=== PATIENT | female | born 1975 | race American Indian/Alaskan Native ===

== ENCOUNTER 2017-11-09 15:55 | Emergency (ER) | payer MEDICAID ==
[~2017-11-09] VITALS: Ht 5367.7 cm; Wt 86.4 kg
[~2017-11-09 15:55] MED LIST: CHOL2000 PO; ESCI20TA PO; FERR325T28 PO; HYDR-569 PO; LORA1TAB PO; ONDA4TAB12 PO; ONDA4TAB59 PO; ONDA8TAB9 PO; PANT40TA4 PO
[2017-11-09 16:07] VITALS: BP 116/99
[2017-11-09] MEDS ORDERED: HYDROmorphone 1 mg/ml syringe IM ONE (16:15)
[2017-11-09] MEDS ORDERED: ondansetron 4mg rapidly disintigrating tab PO ONE (16:15)
[2017-11-09] MEDS ORDERED: morphine 2 MG/ML inj. syringe IM ONE (16:35)
[2017-11-09] MEDS ORDERED: diphenhydrAMINE 50 mg/ml inj IM ONE (16:35)
[2017-11-09] MEDS ORDERED: HYDROcodone/acetaminophen 10/325mg tab PO ONE ×2 (17:15→17:35)
[2017-11-09] MEDS ORDERED: morphine 2 MG/ML inj. syringe IV ONE (17:20)
[2017-11-09] MEDS ORDERED: morphine 8mg/ml inj. syringe IV ONE (17:20)
[2017-11-09] MEDS ORDERED: HYDR-3965 PO (18:06)
== END 2017-11-09 18:33 | disposition home or self-care (01) ==
LOC: ER 15:55
DX: S46.919A Strain of unspecified muscle, fascia and tendon at shoulder and upper arm level, unspecified arm, initial encounter (principal); S93.402A Sprain of unspecified ligament of left ankle, initial encounter; S29.9XXA Unspecified injury of thorax, initial encounter; F43.20 Adjustment disorder, unspecified; M23.92 Unspecified internal derangement of left knee; Z90.49 Acquired absence of other specified parts of digestive tract; Z98.890 Other specified postprocedural states; Z91.040 Latex allergy status; Z79.899 Other long term (current) drug therapy; W01.0XXA Fall on same level from slipping, tripping and stumbling without subsequent striking against object, initial encounter; Y93.89 Activity, other specified; Y92.89 Other specified places as the place of occurrence of the external cause; Y99.8 Other external cause status
CPT/HCPCS: 71046; 73030; 73564; 73610; 73630; 96372; 96374; 99284; J1200; J2270

== ENCOUNTER 2018-05-12 14:52 | Emergency (ER) | payer MEDICAID ==
[~2018-05-12] VITALS: Ht 157.5 cm; Wt 85.5 kg
[2018-05-12] MEDS ORDERED: ondansetron/PF 4mg/2ml inj IV ONE (15:45)
[2018-05-12] MEDS ORDERED: normal saline 1000ML IV soln IVB ONE (15:45)
[2018-05-12] MEDS ORDERED: HYDROmorphone 1 mg/ml syringe IV ONE (15:45)
[2018-05-12 15:51] LABS: BASOPHILS # (AUTO) 0.1 X10'3 (0-0.2); BASOPHILS % (AUTO) 1.5 % (0-1); EOSINOPHILS # (AUTO) 0.1 X10'3 (0-0.9); EOSINOPHILS % (AUTO) 1.2 % (0-6); HEMATOCRIT 39.1 % (35.0-45.0); HEMOGLOBIN 13.3 g/dl (12.0-16.0); LYMPHOCYTES # (AUTO) 2.7 X10'3 (1.1-4.8); LYMPHOCYTES % (AUTO) 28.6 % (21-51); MEAN CORPUSCULAR HEMOGLOBIN 30.4 PG (27.0-31.0); MEAN CORPUSCULAR HGB CONC 33.8 % (33.0-36.5); MEAN CORPUSCULAR VOLUME 89.8 FL (78-98); MEAN PLATELET VOLUME 9.1 FL (7.4-10.4); MONOCYTES # (AUTO) 0.6 X10'3 (0-0.9); MONOCYTES % (AUTO) 6.4 % (2-12); NEUTROPHILS # (AUTO) 6.1 X10'3 (1.8-7.7); NEUTROPHILS % (AUTO) 62.3 % (42-75); PLATELET COUNT 271 X10'3 (140-440); RED BLOOD COUNT 4.36 X10'6 (4.20-5.60); RED CELL DISTRIBUTION WIDTH 14.1 % (11.5-14.5); WHITE BLOOD COUNT 9.6 X10'3 (4.5-11.0)
[2018-05-12 16:14] LABS: ALANINE AMINOTRANSFERASE 25 U/L (12-78); ALBUMIN 3.7 G/DL (3.4-5.0); ALKALINE PHOSPHATASE 63 IU/L (46-116); ANION GAP 11 (8-16); ASPARTATE AMINO TRANSFERASE 14 U/L (10-37); BILIRUBIN,TOTAL 0.3 MG/DL (0.1-1.0); BLOOD UREA NITROGEN 7 MG/DL (7-18); BUN/CREATININE RATIO 7.9 (6.6-38.0); CALCIUM 8.9 MG/DL (8.5-10.1); CHLORIDE 100 MMOL/L (99-107); CREATININE 0.89 MG/DL (0.40-0.90); GLUCOSE 88 MG/DL (70-104); LIPASE 92 U/L (73-393); POTASSIUM 3.5 MMOL/L (3.5-5.1); SODIUM 134 MMOL/L (135-145); TOTAL CARBON DIOXIDE 22.6 MMOL/L (24-32); TOTAL PROTEIN 7.5 G/DL (6.4-8.2); eGFR 70 ML/MIN
[2018-05-12 16:15] LABS: COLOR,URINE YELLOW (Yellow); GLUCOSE, URINE NEGATIVE (Neg); KETONES,URINE NEGATIVE (Neg); LEUKOCYTE ESTERASE ,URINE NEGATIVE (Neg); NITRITES, URINE NEGATIVE (Neg); OCCULT BLOOD,URINE TRACE-INTACT (Neg); PH,URINE 6.5 (4.8-8.0); PROTEIN,URINE NEGATIVE (Neg); UROBILINOGEN,URINE 0.2 E.U/dL (0.2-1.0)
[2018-05-12 16:18] LABS: CLARITY,URINE Slightly Cloudy (Clear); UA COLLECTION TYPE CLN CATCH MIDSTREAM
[2018-05-12 16:23] LABS: BACTERIA,URINE NONE SEEN /HPF (Neg); RBC,URINE 0-2 /HPF (0-2); SQUAMOUS EPITHELIAL CELL,UR FEW /LPF (FEW); WBC,URINE 0-4 /HPF (0-4)
[2018-05-12] MEDS ORDERED: IBUP-1984 PO (19:07)
[2018-05-12 19:14] VITALS: BP 111/54
== END 2018-05-12 19:18 | disposition home or self-care (01) ==
LOC: ER 14:52
DX: R10.33 Periumbilical pain (principal); M54.9 Dorsalgia, unspecified; M25.512 Pain in left shoulder; Z90.49 Acquired absence of other specified parts of digestive tract; Z98.890 Other specified postprocedural states; Z91.040 Latex allergy status; Z79.899 Other long term (current) drug therapy
CPT/HCPCS: 36415; 71045; 74176; 80053; 81001; 83690; 84484; 85025; 93005; 96374; 96375; 99285; J1170; J2405; J7030

== ENCOUNTER 2019-05-01 07:19 | Day surgery (SDC) | payer MEDICAID ==
[2019-04-26 15:01] LABS: BASOPHILS # (AUTO) 0.1 X10'3 (0-0.2); BASOPHILS % (AUTO) 0.9 % (0-1); EOSINOPHILS # (AUTO) 0.1 X10'3 (0-0.9); LYMPHOCYTES % (AUTO) 27.5 % (21-51); MEAN CORPUSCULAR HEMOGLOBIN 29.5 PG (27.0-31.0); MEAN CORPUSCULAR HGB CONC 33.2 g/dL (33.0-36.5); MEAN CORPUSCULAR VOLUME 88.8 FL (78-98); MEAN PLATELET VOLUME 8.2 FL (7.4-10.4); MONOCYTES # (AUTO) 0.6 X10'3 (0-0.9); MONOCYTES % (AUTO) 8.9 % (2-12); NEUTROPHILS # (AUTO) 4.4 X10'3 (1.8-7.7); NEUTROPHILS % (AUTO) 60.7 % (42-75); PRE OP HEMATOCRIT 36.7 % (35.0-45.0); PRE OP HEMOGLOBIN 12.2 g/dL (12.0-16.0); PRE OP PLATELET COUNT 304 X10'3 (140-440); RED BLOOD COUNT 4.13 X10'6 (4.20-5.60); RED CELL DISTRIBUTION WIDTH 17.2 % (11.5-14.5)
[2019-04-26 15:15] LABS: CHLORIDE 107 MMOL/L (99-107); PRE OP GLUCOSE 74 MG/DL (70-104); PRE OP POTASSIUM 3.9 MMOL/L (3.4-5.1); PRE OP SODIUM 142 MMOL/L (135-145); TOTAL CARBON DIOXIDE 27.8 MMOL/L (24-32)
[2019-04-26 15:16] LABS: ALBUMIN 3.6 G/DL (3.4-5.0); ALKALINE PHOSPHATASE 76 IU/L (46-116); BLOOD UREA NITROGEN 9 MG/DL (7-18); BUN/CREATININE RATIO 11.1 (6.6-38.0); CALCIUM 8.7 MG/DL (8.5-10.1); CREATININE 0.81 MG/DL (0.40-0.90); PRE OP ALT 18 U/L (30-65); PRE OP ANION GAP 7 (8-16); PRE OP AST 11 U/L (10-37); PRE OP BILIRUB, TOTAL 0.3 MG/DL (0.0-1.0); TOTAL PROTEIN 7.2 G/DL (6.4-8.2); eGFR 77 ML/MIN
[2019-05-01] VITALS (13 sets, daily range): BP systolic 102–120; BP diastolic 66–80
[~2019-05-01] VITALS: Ht 162.6 cm; Wt 85.0 kg
[~2019-05-01 07:19] MED LIST changes: -CHOL2000 PO; -FERR325T28 PO; -HYDR-569 PO; -LORA1TAB PO; -ONDA4TAB12 PO; -ONDA4TAB59 PO; -ONDA8TAB9 PO; -PANT40TA4 PO; +albuterol 2.5 MG/3 ML nebule NEB ONE; +cefazolin/dext.iso 2gm/100 ML IV ONE; +famotidine 20mg tablet PO ONE; +ringers solution, lacted 1,000 ML IV SCH
[2019-05-01] MEDS ORDERED: morphine 4 MG/ML inj SYRINge IV PRN ×2 (08:10)
[2019-05-01] MEDS ORDERED: ringers solution, lacted 1,000 ML IV SCH (08:10)
[2019-05-01] MEDS ORDERED: ondansetron/PF 4mg/2ml inj IV PRN (08:10)
[2019-05-01] MEDS ORDERED: proCHLORperazine 10 MG/2 ml inj IV PRN (08:10)
[2019-05-01] MEDS ORDERED: meperidine/PF 25mg/ml syringe IV PRN ×3 (08:10)
[2019-05-01] MEDS ORDERED: scopolamine 1.5mg patch.TD72 TD ONE (08:15)
[2019-05-01] MEDS ORDERED: ROPIVAcaine 0.5% (5mg/ml) 30ml vial ONE (08:40)
[2019-05-01] MEDS ORDERED: ketorolac trometh. 30mg/ml inj. ONE ×2 (08:40→10:18)
[2019-05-01] MEDS ORDERED: LIDOcaine 1% 30ml preserv. free vial ONE (08:40)
[2019-05-01] MEDS ORDERED: BUPIVAcaine/PF 2.5 mg/ml (0.25%) 30ml vial ONE (08:41)
[2019-05-01] MEDS ORDERED: sevoflurane 250ml liquid IH ONE (09:40)
[2019-05-01] MEDS ORDERED: dexamethasone sod phosphate 10mg/ml inj ONE (09:40)
[2019-05-01] MEDS ORDERED: glycopyrrolate 0.2mg/ml inj ONE (09:40)
[2019-05-01] MEDS ORDERED: neostigmine methylsulfate 1 MG/ML 10ml vial ONE (09:40)
[2019-05-01] MEDS ORDERED: fentaNYL/PF 50MCG/1 ML 2ML syringe ONE (09:42)
[2019-05-01] MEDS ORDERED: propofol inj 20 ML IV ONE (09:43)
[2019-05-01] MEDS ORDERED: LIDOcaine 2% (20mg/ml) 5ml vial ONE (09:43)
[2019-05-01] MEDS ORDERED: midazolam 2 mg/2 ml injection ONE (09:43)
[2019-05-01] MEDS ORDERED: rocuronium 10mg/ml inj IV ONE (09:44)
[2019-05-01] MEDS ORDERED: ondansetron/PF 4mg/2ml inj ONE (10:18)
--- NOTE | 2019-05-01 11:25 | NUR ---
Received from OR via [facility], accompanied by Anesthesiologist DR MENA and report given by Anesthesiologist. PT DROWSY, DENIES PAIN, ABDOMEN W/3 LAP SITES W/BANDAIDS CDI. Addendum: 05/01/19 at 1139 by Monie Cosby RN Amended: Links added.
[2019-05-01] MEDS ORDERED: oxyCODONE/APAP 10/325mg tablet PO PRN ×2 (11:40→11:45)
--- NOTE | 2019-05-01 13:15 | NUR ---
D/C INSTRUCTIONS GIVEN AND GONE OVER W/PT, VERBALIZES UNDERSTANDING, D/CD TO HOME VIA W/C TO PRIVATE VEHICLE W/O INCIDENT. Addendum: 05/01/19 at 1336 by Monie Cosby RN Amended: Links added.
== END 2019-05-01 13:15 | disposition home or self-care (01) ==
LOC: PAS 07:19
PROVIDERS: ATTEND Surgery
DX: K42.0 Umbilical hernia with obstruction, without gangrene (principal); F17.210 Nicotine dependence, cigarettes, uncomplicated; M19.90 Unspecified osteoarthritis, unspecified site; F43.10 Post-traumatic stress disorder, unspecified; F41.8 Other specified anxiety disorders; G89.18 Other acute postprocedural pain; Z91.040 Latex allergy status; Z90.49 Acquired absence of other specified parts of digestive tract; Z80.6 Family history of leukemia; Z98.890 Other specified postprocedural states; Z79.899 Other long term (current) drug therapy
CPT/HCPCS: 36415; 49653; 64488; 80053; 82948; 85025; 93005; 94640; C1781; J1885; J2001; J2175; J2250; J2405; J2704; J3010; J3490; J7120; S2900; A4215; A4618; J1100; J2710; J2795

== ENCOUNTER 2020-10-13 14:09 | Emergency (ER) | payer MEDICAID ==
[~2020-10-13] VITALS: Ht 160 cm; Wt 81.0 kg
[~2020-10-13 14:09] MED LIST changes: -albuterol 2.5 MG/3 ML nebule NEB ONE; -cefazolin/dext.iso 2gm/100 ML IV ONE; -famotidine 20mg tablet PO ONE; -ringers solution, lacted 1,000 ML IV SCH
[2020-10-13] MEDS ORDERED: ketorolac trometh. 30mg/ml inj. IV ONE (14:20)
[2020-10-13] MEDS ORDERED: ondansetron/PF 4mg/2ml inj IV ONE (14:20)
[2020-10-13] MEDS ORDERED: normal saline 1000ML IV soln IVB ONE (14:20)
[2020-10-13] MEDS: morphine 4 MG/ML inj SYRINge IV PRN ×2 (15:01→15:53)
[2020-10-13 15:17] LABS: CLARITY,URINE CLOUDY (Clear); COLOR,URINE YELLOW (Yellow); GLUCOSE, URINE NEGATIVE (Neg); KETONES,URINE 40 mg/dl (Neg); LEUKOCYTE ESTERASE ,URINE TRACE (Neg); NITRITES, URINE NEGATIVE (Neg); OCCULT BLOOD,URINE TRACE-LYSED (Neg); PROTEIN,URINE NEGATIVE (Neg); UROBILINOGEN,URINE 0.2 E.U/dL (0.2-1.0)
[2020-10-13 15:23] LABS: UA COLLECTION TYPE CLN CATCH MIDSTREAM
[2020-10-13 15:25] LABS: WBC,URINE 0-4 /HPF (0-4)
[2020-10-13 15:26] LABS: BACTERIA,URINE 2+ /HPF (Neg); MUCUS STRANDS MANY /LPF (Neg); SQUAMOUS EPITHELIAL CELL,UR MANY /LPF (FEW)
[2020-10-13 15:31] LABS: BASOPHILS # (AUTO) 0.1 X10'3 (0-0.2); BASOPHILS % (AUTO) 0.7 % (0-1); EOSINOPHILS % (AUTO) 0.5 % (0-6); HEMATOCRIT 31.7 % (35.0-45.0); HEMOGLOBIN 10.1 g/dl (12.0-16.0); LYMPHOCYTES % (AUTO) 11.2 % (21-51); MEAN CORPUSCULAR HEMOGLOBIN 25.9 PG (27.0-31.0); MEAN CORPUSCULAR HGB CONC 31.7 g/dL (33.0-36.5); MEAN CORPUSCULAR VOLUME 81.7 FL (78-98); MEAN PLATELET VOLUME 8.8 FL (7.4-10.4); MONOCYTES # (AUTO) 0.5 X10'3 (0-0.9); MONOCYTES % (AUTO) 4.9 % (2-12); NEUTROPHILS # (AUTO) 7.6 X10'3 (1.8-7.7); NEUTROPHILS % (AUTO) 82.7 % (42-75); PLATELET COUNT 295 X10'3 (140-440); RED BLOOD COUNT 3.88 X10'6 (4.20-5.60); RED CELL DISTRIBUTION WIDTH 18.1 % (11.5-14.5); WHITE BLOOD COUNT 9.2 X10'3 (4.5-11.0)
[2020-10-13 16:00] LABS: ALANINE AMINOTRANSFERASE 18 U/L (12-78); ALBUMIN 3.4 G/DL (3.4-5.0); ALBUMIN/GLOBULIN RATIO 0.9 (1.1-1.5); ALKALINE PHOSPHATASE 66 IU/L (46-116); ANION GAP 7 (8-16); ASPARTATE AMINO TRANSFERASE 13 U/L (10-37); BILIRUBIN,TOTAL 0.3 MG/DL (0.1-1.0); BLOOD UREA NITROGEN 8 MG/DL (7-18); BUN/CREATININE RATIO 11.3 (6.6-38.0); CALCIUM 8.3 MG/DL (8.5-10.1); CHLORIDE 105 MMOL/L (99-107); CREATININE 0.71 MG/DL (0.40-0.90); GLUCOSE 93 MG/DL (70-104); POTASSIUM 3.9 MMOL/L (3.5-5.1); SODIUM 139 MMOL/L (135-145); TOTAL CARBON DIOXIDE 26.7 MMOL/L (24-32); TOTAL PROTEIN 7.4 G/DL (6.4-8.2); eGFR 89 ML/MIN
[2020-10-13 16:01] LABS: URINE HCG NEGATIVE (NEG)
[2020-10-13] MEDS ORDERED: oxyCODONE/APAP 5-325mg tablet PO ONE (16:20)
[2020-10-13] MEDS ORDERED: OXYC-145 PO (16:20)
[2020-10-13] MEDS ORDERED: NAPR-56 PO (16:20)
[2020-10-13] MEDS ORDERED: ONDA4TAB6 PO (16:20)
[2020-10-13] MEDS ORDERED: LORazepam 2 mg/ml vial IV ONE (16:20)
[2020-10-13 16:34] VITALS: BP 123/82
[2020-10-13] MEDS ORDERED: tamsulosin 0.4mg capsule PO ONE (16:45)
== END 2020-10-13 17:58 | disposition home or self-care (01) ==
LOC: ER 14:10
DX: R10.9 Unspecified abdominal pain (principal); R31.9 Hematuria, unspecified; R11.2 Nausea with vomiting, unspecified; M54.5 Low back pain; G89.29 Other chronic pain; J40 Bronchitis, not specified as acute or chronic; Z90.49 Acquired absence of other specified parts of digestive tract; Z98.890 Other specified postprocedural states; Z91.040 Latex allergy status; Z79.899 Other long term (current) drug therapy
CPT/HCPCS: 36415; 74176; 80053; 81001; 81025; 85025; 96361; 96374; 96375; 96376; 99284; J1885; J2060; J2270; J2405; J7030

== ENCOUNTER 2022-07-27 12:21 | Emergency (ER) | payer MEDICAID ==
[~2022-07-27] VITALS: Ht 160 cm; Wt 63.6 kg
[~2022-07-27 12:21] MED LIST changes: +ONDA4TAB6 PO; +OXYC-145 PO
[2022-07-27 12:40] VITALS: BP 122/86
[2022-07-27 13:26] LABS: BASOPHILS % (AUTO) 0.6 % (0-1); HEMATOCRIT 31.2 % (35.0-45.0); HEMOGLOBIN 9.8 g/dl (12.0-16.0); LYMPHOCYTES # (AUTO) 1.2 X10'3 (1.1-4.8); LYMPHOCYTES % (AUTO) 39.3 % (21-51); MEAN CORPUSCULAR HEMOGLOBIN 23.6 PG (27.0-31.0); MEAN CORPUSCULAR HGB CONC 31.4 g/dL (33.0-36.5); MEAN CORPUSCULAR VOLUME 75.1 FL (78-98); MEAN PLATELET VOLUME 8.9 FL (7.4-10.4); MONOCYTES # (AUTO) 0.4 X10'3 (0-0.9); MONOCYTES % (AUTO) 11.8 % (2-12); NEUTROPHILS # (AUTO) 1.5 X10'3 (1.8-7.7); NEUTROPHILS % (AUTO) 47.3 % (42-75); PLATELET COUNT 186 X10'3 (140-440); RED BLOOD COUNT 4.15 X10'6 (4.20-5.60); RED CELL DISTRIBUTION WIDTH 18.4 % (11.5-14.5); WHITE BLOOD COUNT 3.1 X10'3 (4.5-11.0)
[2022-07-27 13:41] LABS: ALANINE AMINOTRANSFERASE 23 U/L (12-78); ALBUMIN 3.8 G/DL (3.4-5.0); ALBUMIN/GLOBULIN RATIO 1.1 (1.1-1.5); ALKALINE PHOSPHATASE 53 IU/L (46-116); ANION GAP 8 (8-16); ASPARTATE AMINO TRANSFERASE 23 U/L (10-37); BILIRUBIN,TOTAL 0.2 MG/DL (0.1-1.0); BLOOD UREA NITROGEN 6 MG/DL (7-18); CALCIUM 8.7 MG/DL (8.5-10.1); CHLORIDE 106 MMOL/L (99-107); CREATININE 0.67 MG/DL (0.40-0.90); GLUCOSE 86 MG/DL (70-104); LIPASE 65 U/L (73-393); POTASSIUM 3.5 MMOL/L (3.5-5.1); SODIUM 142 MMOL/L (135-145); TOTAL CARBON DIOXIDE 28.4 MMOL/L (24-32); TOTAL PROTEIN 7.3 G/DL (6.4-8.2); eGFR > 90 ML/MIN
== END 2022-07-27 21:44 | disposition left against medical advice (07) ==
LOC: ER 12:22
DX: R10.32 Left lower quadrant pain (principal); Z53.21 Procedure and treatment not carried out due to patient leaving prior to being seen by health care provider
CPT/HCPCS: 36415; 80053; 83690; 85025

== ENCOUNTER 2023-03-06 09:29 | Emergency (ER) | payer MEDICAID ==
[~2023-03-06] VITALS: Ht 160 cm; Wt 65.6 kg
[2023-03-06 10:13] LABS: CLARITY,URINE CLEAR (Clear); COLOR,URINE YELLOW (Yellow); GLUCOSE, URINE NEGATIVE (Neg); KETONES,URINE NEGATIVE (Neg); LEUKOCYTE ESTERASE ,URINE NEGATIVE (Neg); NITRITES, URINE NEGATIVE (Neg); OCCULT BLOOD,URINE SMALL (Neg); PROTEIN,URINE NEGATIVE (Neg); UROBILINOGEN,URINE 0.2 E.U/dL (0.2-1.0)
[2023-03-06 10:15] LABS: UA COLLECTION TYPE CLN CATCH MIDSTREAM
[2023-03-06 10:16] LABS: URINE HCG NEGATIVE (NEG)
[2023-03-06 10:21] LABS: BACTERIA,URINE 2+ /HPF (Neg); MUCUS STRANDS NONE SEEN /LPF (Neg); RBC,URINE 0-2 /HPF (0-2); SQUAMOUS EPITHELIAL CELL,UR MODERATE /LPF (FEW); WBC,URINE 0-4 /HPF (0-4)
[2023-03-06] MEDS ORDERED: morphine 4 MG/ML inj SYRINge IM ONE (10:35)
[2023-03-06] MEDS ORDERED: ondansetron/PF 4mg/2ml inj IV ONE ×2 (10:35→11:30)
[2023-03-06 10:59] LABS: BASOPHILS % (AUTO) 0.5 % (0-1); EOSINOPHILS % (AUTO) 0.7 % (0-6); HEMATOCRIT 29.9 % (35.0-45.0); HEMOGLOBIN 9.4 g/dl (12.0-16.0); LYMPHOCYTES # (AUTO) 1.6 X10'3 (1.1-4.8); LYMPHOCYTES % (AUTO) 34.1 % (21-51); MEAN CORPUSCULAR HEMOGLOBIN 23.6 PG (27.0-31.0); MEAN CORPUSCULAR HGB CONC 31.4 g/dL (33.0-36.5); MEAN CORPUSCULAR VOLUME 75.1 FL (78-98); MEAN PLATELET VOLUME 8.1 FL (7.4-10.4); MONOCYTES # (AUTO) 0.3 X10'3 (0-0.9); MONOCYTES % (AUTO) 7.2 % (2-12); NEUTROPHILS # (AUTO) 2.7 X10'3 (1.8-7.7); NEUTROPHILS % (AUTO) 57.5 % (42-75); PLATELET COUNT 228 X10'3 (140-440); RED BLOOD COUNT 3.98 X10'6 (4.20-5.60); RED CELL DISTRIBUTION WIDTH 19.2 % (11.5-14.5); WHITE BLOOD COUNT 4.7 X10'3 (4.5-11.0)
[2023-03-06 11:06] LABS: ALANINE AMINOTRANSFERASE 22 U/L (12-78); ALBUMIN 3.8 G/DL (3.4-5.0); ALBUMIN/GLOBULIN RATIO 1.1 (1.1-1.5); ALKALINE PHOSPHATASE 47 IU/L (46-116); ANION GAP 8 (8-16); ASPARTATE AMINO TRANSFERASE 13 U/L (10-37); BILIRUBIN,TOTAL 0.3 MG/DL (0.1-1.0); BLOOD UREA NITROGEN 9 MG/DL (7-18); BUN/CREATININE RATIO 11.8 (10.0-20.0); CALCIUM 8.3 MG/DL (8.5-10.1); CHLORIDE 105 MMOL/L (99-107); CREATININE 0.76 MG/DL (0.40-0.90); GLUCOSE 87 MG/DL (70-104); POTASSIUM 3.3 MMOL/L (3.5-5.1); SODIUM 139 MMOL/L (135-145); TOTAL CARBON DIOXIDE 25.6 MMOL/L (24-32); TOTAL PROTEIN 7.3 G/DL (6.4-8.2); eGFR 82 ML/MIN
[2023-03-06 11:12] LABS: BETA HCG,QUANTITATIVE < 1.0 mIU/ml; LIPASE 76 U/L (73-393)
[2023-03-06] MEDS ORDERED: morphine 4 MG/ML inj SYRINge IV ONE (11:30)
[2023-03-06 12:02] LABS: ANISOCYTOSIS 2+; MICROCYTOSIS 1+; PLATELET ESTIMATE NORMAL
[2023-03-06 12:03] LABS: HYPOCHROMASIA 2+
[2023-03-06 12:04] LABS: ELLIPTOCYTES FEW; SCHISTOCYTES FEW
[2023-03-06 12:47] VITALS: BP 97/55
[2023-03-06] MEDS ORDERED: HYDR-3965 PO (13:05)
== END 2023-03-06 13:20 | disposition home or self-care (01) ==
LOC: ER 09:30
DX: N83.292 Other ovarian cyst, left side (principal); N94.6 Dysmenorrhea, unspecified; F31.9 Bipolar disorder, unspecified; Z90.49 Acquired absence of other specified parts of digestive tract; Z91.040 Latex allergy status; Z88.8 Allergy status to other drugs, medicaments and biological substances
CPT/HCPCS: 36415; 76801; 80053; 81001; 81025; 83690; 84702; 85008; 85025; 86900; 86901; 96374; 96375; 96376; 99285; J2270; J2405

== ENCOUNTER 2023-07-06 18:14 | Emergency (ER) | payer MEDICAID ==
[~2023-07-06] VITALS: Ht 157.5 cm; Wt 70.0 kg
[2023-07-06 18:21] VITALS: BP 122/71; PULSE 97; TEMP 98; O2SAT 98
[2023-07-06] MEDS ORDERED: naproxen 500mg tablet PO ONE (19:25)
[2023-07-06] MEDS ORDERED: amox tr/potassium clavulanate 875/125mg TAB PO ONE (19:25)
[2023-07-06] MEDS ORDERED: HYDROcodone/acetaminophen 10/325mg tab PO ONE (19:25)
[2023-07-06 19:30] VITALS: RESP 20
[2023-07-06] MEDS ORDERED: HYDR-3973 PO (19:30)
[2023-07-06] MEDS ORDERED: NAPR-56 PO (19:30)
[2023-07-06] MEDS ORDERED: AMOX-117 PO (19:30)
== END 2023-07-06 19:54 | disposition home or self-care (01) ==
LOC: ER 18:15
DX: K02.9 Dental caries, unspecified (principal); K04.7 Periapical abscess without sinus; F31.9 Bipolar disorder, unspecified; Z91.040 Latex allergy status; Z79.899 Other long term (current) drug therapy
CPT/HCPCS: 99284

== ENCOUNTER 2023-11-10 11:39 | Emergency (ER) | payer MEDICAID, OTHER ==
[~2023-11-10] VITALS: Ht 160 cm; Wt 65.1 kg
[2023-11-10 14:25] LABS: STREP A SCREEN NEGATIVE (Neg)
[2023-11-10] MEDS: ibuprofen tablet 400 MG TABLET PO ONE (15:11)
[2023-11-10] MEDS ORDERED: PENI500T2 PO (15:13)
[2023-11-10 15:21] VITALS: BP 129/87; PULSE 77; RESP 18; TEMP 98.4; O2SAT 98
== END 2023-11-10 15:22 | disposition home or self-care (01) ==
LOC: ER 11:39
DX: U07.1 COVID-19 (principal); K08.89 Other specified disorders of teeth and supporting structures; J02.9 Acute pharyngitis, unspecified; K03.81 Cracked tooth; F41.9 Anxiety disorder, unspecified; F32.9 Major depressive disorder, single episode, unspecified; Z90.49 Acquired absence of other specified parts of digestive tract; Z98.890 Other specified postprocedural states; Z91.040 Latex allergy status; Z79.899 Other long term (current) drug therapy
CPT/HCPCS: 36415; 87081; 87502; 87503; 87811; 87880; 99283